=== PATIENT | male | born 1950 | race Caucasian/White ===

== ENCOUNTER 2017-12-23 09:00 | Outpatient (RCR) | payer BC | END 2018-01-03 | LOC: OT 09:00 | PROVIDERS: ATTEND Surgery Surgery of the Hand | DX: S63.8X1A Sprain of other part of right wrist and hand, initial encounter (principal) | CPT/HCPCS: L3913; L3925 ==

== ENCOUNTER → 2018-02-03 | Outpatient (RCR) | payer BC | LOC: OT 01-19 13:44 | PROVIDERS: ATTEND Surgery Surgery of the Hand | DX: S63.8X1D Sprain of other part of right wrist and hand, subsequent encounter (principal); M79.644 Pain in right finger(s); M25.641 Stiffness of right hand, not elsewhere classified | CPT/HCPCS: 97760; 97762; L3906; L3925 ==